=== PATIENT | male | born 1955 | race Caucasian/White ===

== ENCOUNTER 2017-11-27 09:18 | Emergency (ER) | payer OTHER, SELFPAY ==
[2017-11-27 09:35] VITALS: BP 141/75; PULSE 103; RESP 18; TEMP 37.1; O2SAT 96; BMI 40.7
--- NOTE | 2017-11-27 09:46 | HMH.EDUTC ---
[facility] [place] Clinical Impression: Upper respiratory infection Qualifiers: URI type: unspecified URI Qualified Code(s): J06.9 - Acute upper respiratory infection, unspecified Disposition: Home, Self-Care Condition on Discharge: Good Instructions: Sore Throat Additional Instructions: * Monitor Temp. Tylenol and/or Ibuprofen as needed. ER if fever is no less than 101 despite alternating Tylenol and Ibuprofen * Encourage fluids, water, Gatorade, powerade, pedialyte if /toddler/or child * Warm salt water gargles for throat irritation *Warm fluids *Sore throat lozenges *Sleep elevated *humidifier or vaporizer Lots of rest Increase fluids, water, Gatorade, powerade *Your throat swab was sent to lab for culture. Those results area typically sent to your primary care physician. Be sure to follow up in 2-3 days if no improvement so they can review those results and treat if necessary If you dont have primary care I recommend you get one, but in the mean time you will have to return to a walk in clinic Follow up IMMEDIATELY for new or worsening of symptoms OR no noticeable improvement over the next 48-72 hours. 911 immediately for any life threatening symptoms such as chest pain or difficulty breathing Prescriptions: Azithromycin [Z-Fahad 250mg Tab] 250 mg PO UD DOSE PK #6 tab Dextromethorphan Polistirex [Delsym] 10 ml PO Q12H PRN #200 [email or web address] PRN Reason: Cough predniSONE [Prednisone 20mg Tab] 20 mg PO BID #10 tab Time of Disposition: 11:05 Medical Decision Making - Medical Records Medical records reviewed: Yes: I reviewed the patient's medical records. Vital Signs: 11/27/17 09:35 Temperature 98.8 F Temperature Source Oral Pulse Rate [Right Brachial] 103 H Respiratory Rate 18 Blood Pressure [Right Arm] 141/75 Blood Pressure Mean [Right Arm] 97 Blood Pressure Source [Right Arm] Automatic Cuff Blood Pressure Position [Right Arm] Sitting 02 Sat by Pulse Oximetry 96 Oxygen Delivery Method Room Air - Lab Data Lab Results 11/27/17 09:44: Influenza Type A Ag Negative, Influenza Type B Ag Negative, Strep Scn Rapid Clinic Negative Orders (Tests/Meds): ORDERS Category Date Time Status Chest XR 2 view (NOT portable) [XR chest 2V] Stat Exams 11/27/17 09:50 Taken Strep Screen Confirmation Stat Micro 11/27/17 09:44 Received - Radiology Data #1 Image(s): Chest Image Reviewed: Yes I have reviewed radiologist's interpretation - Lopez Inquiry Pt receiving controlled substance: No Lopez was queried for this patient: No [facility] [place]PI - General Stated complaint: sore thoat Mode of Arrival: Ambulatory Source of Information: Patient Limitations: No Limitations Description of Symptoms (Recalled from Triage Doc. 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 strep States that he has not had a fever that he knows of but his cough and drainage has continued to get worse - Related Data Previous Rx's Medication Instructions Recorded Azithromycin [Z-Fahad 250mg Tab] 250 mg PO UD DOSE PK #6 tab 11/27/17 Dextromethorphan Polistirex 10 ml PO Q12H PRN #200 [email or web address] 11/27/17 [Delsym] predniSONE [Prednisone 20mg 20 mg PO BID #10 tab 11/27/17 Tab] Allergies Allergy/AdvReac Type Severity Reaction Status Date / Time No Known Allergies Allergy Verified 11/27/17 09:43 - Worker's Comp Is this a Worker's Comp case?: No [facility] History I have reviewed the patient's past medical history: Yes Medical History: Denies:: Cancer, Diabetes Mellitus Type 1,
[2017-11-27 09:48] LABS: UTC Influenza A Antigen Negative (Negative); UTC Influenza B Antigen Negative (Negative); UTC Strep Screen (Rapid) Negative (Negative)
--- NOTE | 2017-11-27 09:50 | ED_ITS ---
[facility] [place] Clinical Impression: Upper respiratory infection Qualifiers: URI type: unspecified URI Qualified Code(s): J06.9 - Acute upper respiratory infection, unspecified Disposition: Home, Self-Care Condition on Discharge: Good Instructions: Sore Throat Additional Instructions: * Monitor Temp. Tylenol and/or Ibuprofen as needed. ER if fever is no less than 101 despite alternating Tylenol and Ibuprofen * Encourage fluids, water, Gatorade, powerade, pedialyte if /toddler/or child * Warm salt water gargles for throat irritation *Warm fluids *Sore throat lozenges *Sleep elevated *humidifier or vaporizer Lots of rest Increase fluids, water, Gatorade, powerade *Your throat swab was sent to lab for culture. Those results area typically sent to your primary care physician. Be sure to follow up in 2-3 days if no improvement so they can review those results and treat if necessary If you don? t have primary care I recommend you get one, but in the mean time you will have to return to a walk in clinic Follow up IMMEDIATELY for new or worsening of symptoms OR no noticeable improvement over the next 48-72 hours. 911 immediately for any life threatening symptoms such as chest pain or difficulty breathing Prescriptions: Azithromycin [Z-Fahad 250mg Tab] 250 mg PO UD DOSE PK #6 tab Dextromethorphan Polistirex [Delsym] 10 ml PO Q12H PRN #200 [email or web address] PRN Reason: Cough predniSONE [Prednisone 20mg Tab] 20 mg PO BID #10 tab Time of Disposition: 11:05 Medical Decision Making - Medical Records Medical records reviewed: Yes: I reviewed the patient's medical records. Vital Signs: 11/27/17 09:35 Temperature 98.8 F Temperature Source Oral Pulse Rate [Right Brachial] 103 H Respiratory Rate 18 Blood Pressure [Right Arm] 141/75 Blood Pressure Mean [Right Arm] 97 Blood Pressure Source [Right Arm] Automatic Cuff Blood Pressure Position [Right Arm] Sitting 02 Sat by Pulse Oximetry 96 Oxygen Delivery Method Room Air - Lab Data Lab Results 11/27/17 09:44: Influenza Type A Ag Negative, Influenza Type B Ag Negative, Strep Scn Rapid Clinic Negative Orders (Tests/Meds): ORDERS Category Date Time Status Chest XR 2 view (NOT portable) [XR chest 2V] Stat Exams 11/27/17 09:50 Taken Strep Screen Confirmation Stat Micro 11/27/17 09:44 Received - Radiology Data #1 Image(s): Chest Image Reviewed: Yes I have reviewed radiologist's interpretation - Lopez Inquiry Pt receiving controlled substance: No Lopez was queried for this patient: No [facility] [place] - General Stated complaint: sore thoat Mode of Arrival: Ambulatory Source of Information: Patient Limitations: No Limitations Description of Symptoms (Recalled from Triage Doc. 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
--- NOTE | 2017-11-27 09:50 | XR_ITS ---
XR chest 2V HISTORY: Cough and congestion ITS.REASON: congestion ORDERING PHYSICIAN: Cordelia Bland PATIENT AGE: 62 years COMPARISON: 03/16/2017 FINDINGS: The cardiomediastinal silhouette and pulmonary vascularity are within normal limits. The lungs are clear without infiltrates, suspicious nodules, or pleural effusions. No acute bony abnormalities. IMPRESSION: Negative chest, no acute finding
== END 2017-11-27 11:23 | disposition home or self-care (01) ==
PROVIDERS: Emergency Provider Nurse Practitioner
DX: J06.9 Acute upper respiratory infection, unspecified (principal)
CPT/HCPCS: 71046; 87804; 87880; 99203; 99281

== ENCOUNTER → 2018-09-21 12:52 | Outpatient (CLI) | payer OTHER, SELFPAY ==
[2018-09-21 13:58] LABS: Alanine Aminotransferase 27 U/L (12-78); Albumin Level 3.7 gm/dL (3.4-5.0); Alkaline Phosphatase 111 U/L (46-116); Anion Gap 14.8 mEq/L (5-15); Aspartate Amino Transferase 12 U/L (15-37); Bilirubin,Total 1.3 mg/dL (0.2-1.0); Blood Urea Nitrogen 17 mg/dL (7-18); Calcium 8.7 mg/dL (8.5-10.1); Carbon Dioxide 26 mmol/L (21.0-32.0); Chloride 104 mmol/L (98-107); Chol/HDL Ratio 3.6 (1-3.5); Cholesterol 129 mg/dL (140-200); Estimated Glomerular Filt Rate 86 ml/min (>60); Free Thyroxine Index 2.6 ug/dL (5.93-13.13); GFR (African American) 104 ML/MIN (>60); Globulin 3.6 gm/dl (1.3-3.2); Glucose 121 mg/dL (74-106); HDL Cholesterol 36 mg/dL (27-67); LDL Cholesterol 71 mg/dL (0-130); Potassium 3.8 mmoL/L (3.5-5.1); Sodium 141 mmol/L (136-145); Thyroid Stimulating Hormone 2.23 uIU/ml (0.358-3.740); Total Protein,Serum 7.3 gm/dL (6.4-8.2); Triglycerides 109 mg/dL (30-200); Triiodothryronine (T3) Uptake 33 % (31-39); VLDL Cholesterol 22 mg/dL (0-40)
[2018-09-21 14:37] LABS: Basophils # 0.1 K/mm3 (0-0.2); Basophils % 0.6 % (0.1-2.0); Eosinophils # 0.5 K/mm3 (0.0-0.4); Eosinophils % 6.1 % (0.1-12.0); Hematocrit 44.8 % (42.0-52.0); Hemoglobin 14.3 g/dL (14.1-18.0); Lymphocytes # 1.4 K/mm3 (0.7-4.5); Lymphocytes % 18.9 % (10-50); Mean Corpuscular HGB Conc 31.9 g/dL (31.8-35.4); Mean Corpuscular Hemoglobin 28.9 pg (27.0-31.2); Mean Corpuscular Volume 90.6 fl (80-94); Mean Platelet Volume 9.2 fl (7.4-10.4); Monocytes # 0.5 K/mm3 (0.1-1.0); Monocytes % 6.4 % (1.7-9.3); Platelet Count 294 K/mm3 (142-424); Red Blood Count 4.95 M/mm3 (4.60-6.20); Red Cell Distribution Width 13.9 % (11.5-17.5); White Blood Count 7.4 K/mm3 (4.8-10.8)
[2018-09-21 16:04] LABS: Hemoglobin A1C 5.8 % (0.0-7.0)
[2018-09-22 19:51] LABS: Prostate Specific Ag 0.5 ng/mL (0.0-4.0); Vitamin D 25 Hydroxy 26.7 ng/mL (30.0-100.0)
== END ==
PROVIDERS: Visit Provider Nurse Practitioner Family
DX: R53.83 Other fatigue (principal)
CPT/HCPCS: 80053; 80061; 82652; 83036; 84153; 84154; 84436; 84443; 84479; 85025

== ENCOUNTER → 2020-03-27 15:36 | Outpatient (CLI) | payer BC, SELFPAY ==
[2020-03-27 15:48] LABS: Basophils # 0.1 K/mm3 (0-0.2); Basophils % 0.5 % (0.1-2.0); Eosinophils # 0.4 K/mm3 (0.0-0.4); Eosinophils % 3.7 % (0.1-12.0); Hematocrit 43.3 % (42.0-52.0); Hemoglobin 14.4 g/dL (14.1-18.0); Lymphocytes # 1.6 K/mm3 (0.7-4.5); Lymphocytes % 16.6 % (10-50); Mean Corpuscular HGB Conc 33.3 g/dL (31.8-35.4); Mean Corpuscular Hemoglobin 29.4 pg (27.0-31.2); Mean Corpuscular Volume 88.3 fl (80-94); Mean Platelet Volume 9.7 fl (7.4-10.4); Monocytes # 0.5 K/mm3 (0.1-1.0); Monocytes % 5.3 % (1.7-9.3); Neutrophils # 6.9 K/mm3 (1.8-7.8); Neutrophils % 73.9 % (37.0-80.0); Platelet Count 351 K/mm3 (142-424); Red Cell Distribution Width 13.8 % (11.5-17.5); White Blood Count 9.4 K/mm3 (4.8-10.8)
[2020-03-27 16:04] LABS: Alanine Aminotransferase 23 U/L (12-78); Albumin Level 4.2 g/dl (3.5-5.0); Albumin/Globulin Ratio 1.3 (1.1-1.8); Alkaline Phosphatase 111 U/L (38-126); Aspartate Amino Transferase 22 U/L (17-59); Bilirubin,Total 0.8 mg/dl (0.2-1.3); Blood Urea Nitrogen 13 mg/dl (9-20); Calcium 9.3 mg/dl (8.4-10.2); Carbon Dioxide 27 mmol/L (22.0-30.0); Chloride 106 mmol/L (98-107); Chol/HDL Ratio 4.2 (1-3.5); Cholesterol 133 mg/dl (140-200); Estimated Glomerular Filt Rate 98 ml/min (>60); GFR (African American) 118 ML/MIN (>60); Globulin 3.3 g/dL (1.3-3.2); Glucose 125 mg/dl (74-100); HDL Cholesterol 32 mg/dl (40-60); Sodium 137 mmol/L (136-145); Total Protein,Serum 7.5 g/dl (6.3-8.2); Triglycerides 133 mg/dl (30-150); VLDL Cholesterol 27 mg/dL (0-40)
[2020-03-27 16:17] LABS: Direct LDL Cholesterol 73.73 mg/dL (100-129)
[2020-03-27 16:22] LABS: T4 (Thyroxine) 7.9 ug/dl (5.53-11.0)
[2020-03-27 16:35] LABS: Thyroid Stimulating Hormone 2.59 uIU/mL (0.465-4.68)
[2020-03-29 07:27] LABS: Vitamin D 25 Hydroxy 26.4 ng/mL (30.0-100.0)
[2020-03-29 20:31] LABS: PSA, Free 0.07 ng/mL; Prostate Specific Ag 0.4 ng/mL (0.0-4.0)
== END ==
PROVIDERS: Visit Provider Nurse Practitioner Family
DX: R60.0 Localized edema (principal); E55.9 Vitamin D deficiency, unspecified; I10 Essential (primary) hypertension; Z79.899 Other long term (current) drug therapy; Z01.89 Encounter for other specified special examinations
CPT/HCPCS: 80053; 80061; 82652; 84153; 84154; 84436; 84443; 85025

== ENCOUNTER → 2020-04-11 08:28 | Outpatient (CLI) | payer BC, SELFPAY ==
--- NOTE | 2020-04-11 08:33 | CA_ITS ---
APPROVED REPORT Bilateral Lower Extremity Venous Study for DVT. Pick Remover: SHABANA Indications Lower Extremity Edema: Bilateral Lower Extremity Swelling: Bilateral Edema BLE X several months. Denies trauma or pain Risk Factors Obesity Vein Imaging CFV (R): compressive, spontaneous, phasic, augmentation FEM (R): compressive, spontaneous, phasic, augmentation POP (R): compressive, spontaneous, phasic, augmentation PTV (R): Compressible GSV (R): compressive, spontaneous, phasic, augmentation SSV (R): Compressible Peroneals (R):Compressible GAS (R): Compressible CFV (L): compressive, spontaneous, phasic, augmentation FEM (L): compressive, spontaneous, phasic, augmentation POP (L): compressive, spontaneous, phasic, augmentation PTV (L): Compressible GSV (L): compressive, spontaneous, phasic, augmentation SSV (L): Compressible Peroneals (L):Compressible GAS (L): Compressible Findings No evidence of DVT or superficial thrombophlebitis in the veins scanned of the right lower extremity. No evidence of DVT or superficial thrombophlebitis in the veins scanned of the left lower extremity. Conclusion No evidence of DVT or superficial thrombophlebitis in the veins scanned of the right lower extremity. No evidence of DVT or superficial thrombophlebitis in the veins scanned of the left lower extremity. Electronically signed by : Mayito Harper MD 04/11/2020 18:35:10
== END ==
PROVIDERS: PCP Nurse Practitioner Family; Visit Provider Nurse Practitioner Family
DX: R60.0 Localized edema (principal)
CPT/HCPCS: 93970

== ENCOUNTER 2021-12-03 09:28 | Emergency (ER) | payer BC, SELFPAY ==
[2021-12-03 10:16] VITALS: BP 145/78; PULSE 92; RESP 16; TEMP 36.8; O2SAT 95; BMI 43.5
--- NOTE | 2021-12-03 10:32 | HMH.EDUTC ---
[facility] [place] Clinical Impression: Bronchitis, Viral syndrome, Exposure to COVID-19 virus Disposition: Home, Self-Care Condition on Discharge: Good Instructions: DI for Acute Bronchitis, Acute Bronchitis, Preventing the Spread of Coronavirus Discharge Instructions, DI for COVID-19 (Suspected or Confirmed ) Additional Instructions: Drink plenty of fluids. Take tylenol or ibuprofen for pain or fever. Take the medications as directed. Follow up with your regular doctor. GO TO THE ER FOR ANY WORSENING SYMPTOMS Quarantine until you know the results of your covid-19 test. Notify your school or workplace of your results and follow their instructions regarding return to work/school. Prescriptions: Benzonatate [Benzonatate 100mg cap] 100 mg PO TIDP PRN #30 cap PRN Reason: Cough Transmission Status: Pending to [id number] Azithromycin [Z-Fahad 250mg Tab*] 250 mg PO UD DOSE PK #6 tab Transmission Status: Pending to [id number] Referrals: Wes Love APRN [Primary Care Provider] - Forms: Work/School Release Time of Disposition: 10:51 Medical Decision Making - Medical Records Medical records reviewed: No: I reviewed the patient's medical records. - Lopez Inquiry Pt receiving controlled substance: No Vital Signs: 12/03/21 10:16 Temperature 98.2 F Temperature Source Oral Pulse Rate [Left] 92 H Respiratory Rate 16 Blood Pressure [Right Arm] 145/78 H Blood Pressure Mean [Right Arm] 100 02 Sat by Pulse Oximetry 95 - Lab Data Lab results reviewed: Yes: I reviewed the patient's lab results. Orders (Tests/Meds): ORDERS Category Date Time Status Covid-19 Nasal PCR ([facility]) Routine Lab 12/03/21 10:14 Received Rapid Strep Scrn Group A [Strep Scrn Group A (Rapid)] Lab 12/03/21 10:14 Received Stat [facility] [place] - General Stated complaint: sore throa, cough, congestion Time Seen by Provider: 12/03/21 10:32 Mode of Arrival: Ambulatory Source of Information: Patient Limitations: No Limitations Description of Symptoms (Recalled from Triage Doc. by RN): pt c/o a sore throat and chest pain with coughing. HEENT Symptoms (Recalled from RN notes): Yes Resp Symptoms (Recalled from RN notes): Yes Skin Symptoms (Recalled from RN notes): No MS Symptoms (Recalled from RN notes): No Functional Status (Recalled from RN notes): wnl - History of Present Illness Provider Complaint: He states that he has felt bad for the past 1 day. He has a worsening cough and chest tightness. He denies any shortness of breath. He denies any fever or chills. He has been fully vaccinated against covid-19. He has had a flu shot this season also. - Related Data Previous Rx's Medication Instructions Recorded furosemide 20 mg tablet 20 mg PO DAILY 4 Days #4 tab 03/27/20 mupirocin 2 % topical ointment 1 applic TOPICAL BID #15 g 03/27/20 cholecalciferol (vitamin D3) 50 50 mcg PO DAILY #30 cap 04/04/20 mcg (2,000 unit) capsule Azithromycin [Z-Fahad 250mg Tab*] 250 mg PO UD DOSE PK #6 tab 12/03/21 Benzonatate [Benzonatate 100mg 100 mg PO TIDP PRN #30 cap 12/03/21 cap] Allergies Allergy/AdvReac Type Severity Reaction Status Date / Time No Known Allergies Allergy Verified 03/27/20 10:32 - Worker's Comp Is this a Worker's Comp case?: No [facility] History - Hepatitis A Screen Drug use history?: No High risk sexual behaviors?: No History of sexually transmitted infection?: No Currently employed?: No Childcare worker?: No Do you have indoor plumbing?: Yes Do you have electricity?: Yes Attestation statement:: This patient has been screened for Hepatitis A risk factors. I have reviewed the patient's past medical history: Yes Medical History: Reports:: Hypertension Denies:: Cancer, Diabetes Mellitus Type 1, Diabetes Mellitus Type 2, MRSA Other Medical History: Denies: Arthritis Laterality Cases: Bilateral: Other Other Surgeries: Yes: Appendectomy, Cholecystectomy, Other
[2021-12-03 10:57] VITALS: BP 145/78; PULSE 92; RESP 16; TEMP 36.8
[2021-12-03 11:40] LABS: Strep Scrn Group A (Rapid) Negative (Negative)
== END 2021-12-03 10:58 | disposition home or self-care (01) ==
PROVIDERS: Emergency Provider Nurse Practitioner Family; PCP Nurse Practitioner Family
DX: U07.1 COVID-19 (principal); B34.9 Viral infection, unspecified
CPT/HCPCS: 87430; 99203; C9803; G0463; U0003; U0005

== ENCOUNTER 2022-10-14 08:13 | Emergency (ER) | payer MEDICARE, BC, SELFPAY ==
--- NOTE | 2022-10-14 08:38 | EXP.UTC ---
Discharge Plan Disposition Patient Disposition: Home, Self-Care Condition: Good Prescriptions Prescriptions: New amoxicillin [amoxicillin] 500 mg tablet 500 mg PO TID 10 Days Qty: 30 0RF benzonatate [benzonatate] 100 mg capsule 100 mg PO TIDP PRN (Reason: Cough) Qty: 30 0RF methylprednisolone 4 mg Tablets,Dose Pack 4 mg PO DIRECTED Qty: 21 0RF No Action furosemide [Lasix] 20 mg tablet 20 mg PO DAILY 4 Days Qty: 4 0RF mupirocin 2 % ointment 1 applic TOPICAL BID Qty: 15 0RF cholecalciferol (vitamin D3) 50 mcg (2,000 unit) capsule 50 mcg PO DAILY Qty: 30 2RF azithromycin 250 MG tablet 250 mg PO UD DOSE PK Qty: 6 0RF Rx Instructions: Take two (2) tablets today, then one (1) tablet days #2 thru #5 benzonatate 100 MG capsule 100 mg PO TIDP PRN (Reason: Cough) Qty: 30 0RF Referrals Follow up/Referrals: Provider,Referral, MD [Primary Care Provider] - See instructions Activity Restrictions/Add. Instructions Additional Instructions/Restrictions: Drink plenty of fluids. Take tylenol or ibuprofen for pain or fever. Take the medications as directed. Follow up with your regular doctor. GO TO THE ER FOR ANY WORSENING SYMPTOMS Clinical Impressions Clinical Impression: Bronchitis, Upper respiratory infection Stand Alone Forms Stand Alone Forms: Work/School Release Instructions Patient Instructions: DI for Sinusitis, DI for Acute Bronchitis Discharge ED Provider: Cory Middleton [facility] General Stated complaint: Drainage, sneezing, cough Time Seen by Provider: 10/14/22 08:38 History of Present Illness Provider Complaint: He has had sinus congestion, cough, ear pain and sore throat for the past 5 days. Related Data Previous Rx's Medication Instructions Recorded furosemide 20 mg tablet (Lasix) 20 mg PO DAILY 4 days #4 tabs 03/27/20 mupirocin 2 % topical ointment 1 applic topical BID #15 grams 03/27/20 cholecalciferol (vitamin D3) 50 50 mcg PO DAILY #30 caps 04/04/20 mcg (2,000 unit) capsule azithromycin 250 mg tablet 250 mg PO UD DOSE PK #6 tabs 12/03/21 benzonatate 100 mg capsule 100 mg PO TIDP PRN Cough #30 caps 12/03/21 amoxicillin 500 mg tablet 500 mg PO TID 10 days #30 tabs 10/14/22 benzonatate 100 mg capsule 100 mg PO TIDP PRN Cough #30 caps 10/14/22 methylprednisolone 4 mg tablets in 4 mg PO DIRECTED #21 tabs 10/14/22 a dose pack Allergies Allergy/AdvReac Type Severity Reaction Status Date / Time No Known Allergies Allergy Verified 03/27/20 10:32 [facility] Disclaimer: The information contained in this section may have been updated after the patient was seen, as this information can be updated by other users. Social History Smoking Status: Never smoker alcohol intake: never current occupational status: other Travel in the last 8 weeks: None household members: spouse ROS Obtained: Yes All systems reviewed & no additional complaints except as documented Constitutional Constitutional: Reports chills and Reports fever(s) Eyes Eyes: Denies eye discharge ENT Ears, Nose, Mouth, and Throat: Reports as per HPI Cardiovascular Cardiovascular: Denies chest pain Respiratory Respiratory: Denies chest congestion and Reports cough Gastrointestinal Gastrointestingal: Reports nausea; Denies abdominal pain, constipation, cramping, diarrhea or vomiting Musculoskeletal Musculoskeletal: Denies arthralgias Integumentary/Breasts Skin/Breast: Denies rash Neurologic Neurologic: Denies paresthesias Physical Exam General General appearance: alert and in no apparent distress Head Head exam: atraumatic, normocephalic and normal inspection Eye Eye exam: Present normal appearance, PERRL and EOMI ENT ENT exam: Present normal exam, normal oropharynx, mucous membranes moist, TM's normal bilaterally and normal external ear exam Neck Neck exam: Present normal inspection, full ROM and
[2022-10-14 08:53] VITALS: BP 152/69; PULSE 91; RESP 16; TEMP 37; O2SAT 96; BMI 44.0
[2022-10-14 09:06] LABS: UTC Strep Screen (Rapid) Negative (Negative)
[2022-10-14 09:24] VITALS: BP 153/69; PULSE 91; RESP 16; TEMP 37
== END 2022-10-14 09:47 | disposition home or self-care (01) ==
PROVIDERS: Emergency Provider Nurse Practitioner Family
DX: J02.9 Acute pharyngitis, unspecified (principal); H92.09 Otalgia, unspecified ear; R50.9 Fever, unspecified; R09.81 Nasal congestion; R05.9 Cough, unspecified; Z79.52 Long term (current) use of systemic steroids; Z20.822 Contact with and (suspected) exposure to COVID-19; Z79.899 Other long term (current) drug therapy
CPT/HCPCS: 87880; 99213; C9803; G0463; U0003; U0005

== ENCOUNTER → 2023-05-31 14:12 | Outpatient (CLI) | payer BC, SELFPAY ==
--- NOTE | 2023-05-31 14:16 | CA_ITS ---
APPROVED REPORT EXAM: Comprehensive 2D, Doppler, and color-flow Echocardiogram Au Pair: Trish Ross CRT Ht: 5 ft 6 in Wt: 270lbs BSA: 2.27 BP: 135/65 mmHg Indications: Peripheral Edema 2D Dimensions LVOT 1.98 cm (M/F) 1.5-2.5 LA Volume 48.20 mL LA Volume Index 21.23 mL/m2 (M/F) 16-34 M-Mode Dimensions RVDd 2.72 cm (0.9-2.6) LA Diam 4.35 cm (1.9-4.0) LVDd 5.82 cm (3.5-5.7) Ao Diam 3.92 cm (2.0-3.7) LVDs 3.70 cm (3.5-5.7) IVSd 1.02 cm (0.6-1.1) PWd 0.42 cm (0.6-1.1) EF (Teich) 65.40% FS 36.40% EDV (Teich) 167.90 mL TAPSE 1.96 (<1.7) ESV (Teich) 58.10 mL LV Diastology E Decel Time 150.00 (160-240 msec) E/A Ratio 1.05 MED E' 6.80 (< 7 cm/sec) MED A' 8.90 cm/s E'/MED E' Ratio 11.04 (>14) LAT E' 11.00 (<10 cm/sec) LAT A' 10.60 cm/s E/LAT E' Ratio 6.83 (>14) Aortic Valve AO Peak GR. 7.50 mmHg Mitral Valve MV A Velocity 71.00 (40-130 cm/s) E/A Ratio 1.05 MV Decel. Time 150.00 (160-240 ms) Pulmonary Valve PV Peak Velocity 169.00 (50-150 cm/s) Tricuspid Valve TR P. Velocity 270.00 cm/s RAP Estimate 10.00 mmHg RVSP 39.10 mmHg Left Ventricle The left ventricle is normal size. The left ventricular systolic function is normal. The left ventricular ejection fraction is within the normal range. There is normal left ventricular wall thickness. There is normal LV segmental wall motion. The left ventricular diastolic function is normal. LVEF is 55%. Right Ventricle The right ventricle is mildly dilated. The right ventricular systolic function is normal. Atria The left atrium size is normal. The right atrium size is normal. There is no Doppler evidence of interatrial shunt. Aortic Valve The aortic valve opens well. The aortic valve is mildly thickened. There is focal nodular thickening of the non-coronary cusp. There is no aortic valvular stenosis. Trace aortic regurgitation. Mitral Valve The mitral valve is normal in structure. Trace mitral regurgitation. Tricuspid Valve The tricuspid valve leaflets are thin and pliable. Trace tricuspid regurgitation. The TR jet is insufficient to estimate RVSP. Pulmonic Valve The pulmonary valve is normal in structure. Trace pulmonic regurgitation. Great Vessels The aortic root is normal in size. The visualized proximal segment of the ascending aorta is normal in size. IVC is normal in size and collapses >50% with inspiration. Pericardium There is no pericardial effusion. Conclusion Normal biventricular systolic function Mild RV dilation Mildly thickened AV, focal nodular thickening on the non-coronary cusp of the AV Electronically signed by : Elly Ortiz, 05/31/2023 21:55:00
== END ==
PROVIDERS: Visit Provider Family Medicine
DX: R60.0 Localized edema (principal)
CPT/HCPCS: 93306

== ENCOUNTER 2023-09-09 11:55 | Emergency (ER) | payer BC, SELFPAY ==
[2023-09-09 11:55] VITALS: BP 140/73; PULSE 79; RESP 18; TEMP 36.6; O2SAT 96; BMI 43.5
--- NOTE | 2023-09-09 12:25 | EXP.UTC ---
Discharge Plan Disposition Patient Disposition: Home, Self-Care Condition: Good Prescriptions Prescriptions: New azithromycin [Zithromax] 250 mg tablet 250 mg PO UD DOSE PK Qty: 6 0RF Rx Instructions: Take two (2) tablets today, then one (1) tablet days #2 thru #5 benzonatate [benzonatate] 100 mg capsule 100 mg PO TIDP PRN (Reason: Cough) Qty: 30 0RF methylprednisolone 4 mg Tablets,Dose Pack 4 mg PO DIRECTED Qty: 21 0RF No Action furosemide [Lasix] 20 mg tablet 20 mg PO DAILY 4 Days Qty: 4 0RF cholecalciferol (vitamin D3) 50 mcg (2,000 unit) capsule 50 mcg PO DAILY Qty: 30 2RF lisinopril 5 mg tablet 5 mg PO DAILY Patient Comments: TAKE 1 TABLET BY MOUTH ONCE DAILY Referrals Follow up/Referrals: Johnson Santacruz MD [Primary Care Provider] - See instructions Activity Restrictions/Add. Instructions Additional Instructions/Restrictions: Drink plenty of fluids. Take tylenol or ibuprofen for pain or fever. Take the medications as directed. Follow up with your regular doctor. GO TO THE ER FOR ANY WORSENING SYMPTOMS Clinical Impressions Clinical Impression: Bronchitis Stand Alone Forms Stand Alone Forms: Work/School Release Instructions Patient Instructions: DI for Acute Bronchitis, Acute Bronchitis Discharge ED Provider: Cory Middleton [facility] General Stated complaint: SORE THROAT Time Seen by Provider: 09/09/23 12:25 History of Present Illness Provider Complaint: He states that he has had a cough and chest congestion for the past 3 days. He denies any fever/chills/body aches. He states that he took a home covid-19 test last night that was negative. He refuses any viral testing here. Related Data Home Medications Medication Instructions Recorded Confirmed lisinopril 5 mg tablet 5 mg PO DAILY htn 09/09/23 09/09/23 Previous Rx's Medication Instructions Recorded furosemide 20 mg tablet (Lasix) 20 mg PO DAILY 4 days #4 tabs 03/27/20 cholecalciferol (vitamin D3) 50 50 mcg PO DAILY #30 caps 04/04/20 mcg (2,000 unit) capsule azithromycin 250 mg tablet 250 mg PO UD DOSE PK #6 tabs 09/09/23 (Zithromax) benzonatate 100 mg capsule 100 mg PO TIDP PRN Cough #30 caps 09/09/23 methylprednisolone 4 mg tablets in 4 mg PO DIRECTED #21 tabs 09/09/23 a dose pack Allergies Allergy/AdvReac Type Severity Reaction Status Date / Time No Known Allergies Allergy Verified 09/09/23 12:38 [facility] Disclaimer: The information contained in this section may have been updated after the patient was seen, as this information can be updated by other users. Social History Smoking Status: Never smoker alcohol intake: never current occupational status: other Travel in the last 8 weeks: None household members: spouse ROS Obtained: Yes All systems reviewed & no additional complaints except as documented Constitutional Constitutional: Reports as per HPI, Denies chills and Denies fever(s) Eyes Eyes: Denies eye discharge ENT Ears, Nose, Mouth, and Throat: Reports as per HPI Cardiovascular Cardiovascular: Denies chest pain Respiratory Respiratory: Denies chest congestion and Reports cough Gastrointestinal Gastrointestingal: Reports nausea; Denies abdominal pain, constipation, cramping, diarrhea or vomiting Musculoskeletal Musculoskeletal: Denies arthralgias Integumentary/Breasts Skin/Breast: Denies rash Neurologic Neurologic: Denies paresthesias Physical Exam General General appearance: alert and in no apparent distress Head Head exam: atraumatic, normocephalic and normal inspection Eye Eye exam: Present normal appearance, PERRL and EOMI ENT ENT exam: Present normal exam, normal oropharynx, mucous membranes moist, TM's normal bilaterally and normal external ear exam Neck Neck exam: Present normal inspection, full ROM and trachea midline; Absent meningismus or lymphadenopathy Ch
[2023-09-09 12:41] LABS: UTC Strep Screen (Rapid) Negative (Negative)
[2023-09-09 13:11] VITALS: BP 140/73; PULSE 79; RESP 18; TEMP 36.6; O2SAT 96
== END 2023-09-09 13:11 | disposition home or self-care (01) ==
PROVIDERS: Emergency Provider Nurse Practitioner Family; PCP Family Medicine
DX: J20.9 Acute bronchitis, unspecified (principal); R07.0 Pain in throat
CPT/HCPCS: 87880; 99212; 99214; G0463

== ENCOUNTER 2023-09-21 15:55 | Emergency (ER) | payer BC, SELFPAY ==
[2023-09-21 16:31] VITALS: BP 136/75; PULSE 89; RESP 20; TEMP 36.9; O2SAT 98; BMI 43.5
--- NOTE | 2023-09-21 16:53 | EXP.UTC ---
Discharge Plan Disposition Patient Disposition: Home, Self-Care Condition: Good Prescriptions Prescriptions: New promethazine-DM 6.25-15 mg/5 mL syrup 5 ml PO Q6H PRN (Reason: cough) Qty: 118 0RF No Action furosemide [Lasix] 20 mg tablet 20 mg PO DAILY 4 Days Qty: 4 0RF cholecalciferol (vitamin D3) 50 mcg (2,000 unit) capsule 50 mcg PO DAILY Qty: 30 2RF lisinopril 5 mg tablet 5 mg PO DAILY Patient Comments: TAKE 1 TABLET BY MOUTH ONCE DAILY azithromycin [Zithromax] 250 mg tablet 250 mg PO UD DOSE PK Qty: 6 0RF Rx Instructions: Take two (2) tablets today, then one (1) tablet days #2 thru #5 benzonatate [benzonatate] 100 mg capsule 100 mg PO TIDP PRN (Reason: Cough) Qty: 30 0RF methylprednisolone 4 mg Tablets,Dose Pack 4 mg PO DIRECTED Qty: 21 0RF Referrals Follow up/Referrals: Johnson Santacruz MD [Primary Care Provider] - See instructions Activity Restrictions/Add. Instructions Additional Instructions/Restrictions: Make sure to drink plenty of fluids Take cough mediacation as prescribed Follow up with your Family Doctor if no improvment or any worsening of symptoms Return if needed Clinical Impressions Clinical Impression: Cough Qualifiers: Cough type: unspecified Qualified Code(s): R05.9 - Cough, unspecified Stand Alone Forms Stand Alone Forms: Work/School Release Instructions Patient Instructions: Cough Discharge ED Provider: Cordelia Bland [facility] General Stated complaint: SOA, painful breathing Source of Information: Patient Limitations: No Limitations Time Seen by Provider: 09/21/23 16:54 Description of Symptoms (Recalled from Triage Doc. by RN): PT STATES HE HAS DEVELOPED A COUGH ALONG WITH BEING SHORT OF BREATH THAT STARTED THIS AFTERNOON HEENT Symptoms (Recalled from RN notes): No Resp Symptoms (Recalled from RN notes): Yes Skin Symptoms (Recalled from RN notes): No MS Symptoms (Recalled from RN notes): No Functional Status (Recalled from RN notes): WNL History of Present Illness Provider Complaint: states that he was treated a week or so ago for bronchitis States that he finished the medication and was doing better but today he started again with the cough and feeling like he was getting congested again and coughing so hard at times it makes him feel short of breath and his lungs burn worried he may have pneumonia States that he has had some chills and daughter had COVID last week Related Data Home Medications Medication Instructions Recorded Confirmed lisinopril 5 mg tablet 5 mg PO DAILY htn 09/09/23 09/09/23 Previous Rx's Medication Instructions Recorded furosemide 20 mg tablet (Lasix) 20 mg PO DAILY 4 days #4 tabs 03/27/20 cholecalciferol (vitamin D3) 50 50 mcg PO DAILY #30 caps 04/04/20 mcg (2,000 unit) capsule azithromycin 250 mg tablet 250 mg PO UD DOSE PK #6 tabs 09/09/23 (Zithromax) benzonatate 100 mg capsule 100 mg PO TIDP PRN Cough #30 caps 09/09/23 methylprednisolone 4 mg tablets in 4 mg PO DIRECTED #21 tabs 09/09/23 a dose pack promethazine-DM 6.25 mg-15 mg/5 mL 5 ml PO Q6H PRN cough #118 mL 09/21/23 oral syrup Allergies Allergy/AdvReac Type Severity Reaction Status Date / Time No Known Allergies Allergy Verified 09/09/23 12:38 Worker's Comp Is this a Worker's Comp case?: No [facility] Disclaimer: The information contained in this section may have been updated after the patient was seen, as this information can be updated by other users. Social History Smoking Status: Never smoker alcohol intake: never current occupational status: other Travel in the last 8 weeks: None household members: spouse ROS Obtained: Yes All systems reviewed & no additional complaints except as documented and Yes Systems reviewed as appropriate & no additional complaints except as documented Constitutional Constitutional: Reports system review
--- NOTE | 2023-09-21 16:58 | XR_ITS ---
PROCEDURE INFORMATION: Exam: XR Chest Exam date and time: 09/21/2023 4:58 PM Age: 68 years old Clinical indication: Cough; Additional info: Cough/congestion TECHNIQUE: Imaging protocol: Radiologic exam of the chest. Views: 2 views. COMPARISON: CR CXR2V XR chest 2V 11/27/2017 10:22 AM FINDINGS: Lungs: Unremarkable. No consolidation. Pleural spaces: Unremarkable. No pleural effusion. No pneumothorax. Heart/Mediastinum: Unremarkable. No cardiomegaly. Bones/joints: Unremarkable. IMPRESSION: No acute findings.
[2023-09-21 18:06] VITALS: BP 136/75; PULSE 89; RESP 20; TEMP 36.9; O2SAT 98
== END 2023-09-21 18:17 | disposition home or self-care (01) ==
PROVIDERS: Emergency Provider Nurse Practitioner; PCP Family Medicine
DX: U07.1 COVID-19 (principal); R07.1 Chest pain on breathing; R06.02 Shortness of breath; R05.9 Cough, unspecified
CPT/HCPCS: 71046; 87635; 99212; 99214; G0463

== ENCOUNTER 2023-12-23 07:29 | Outpatient (CLI) | payer BC, SELFPAY ==
--- NOTE | 2023-12-23 | CA_ITS ---
APPROVED REPORT Exam: Pharmacologic Technologist: Martina Contreras, Ht: 5 ft 8 in Wt: 277 lbs BSA: 2.35 m2 HR: 81 bpm BP: 150/88 mmHg Rhythm: Normal sinus rhythm Medical History Medications: Furosemide,,,,, Stress Test Details Test: LEXISCAN Reason for pharmacologic stress test: physical limitation. HR Resting HR: 81 bpm Max Heart Rate (APMHR): 154 bpm Max HR Achieved: 105 bpm Target HR (85% APMHR): 131 bpm % of APMHR: 68 Recovery HR: 86 bpm BP Resting BP: 150.0/88.0 mmHg Max BP: 150.0/88.0 mmHg Recovery BP: 132.0/62.0 mmHg ECG Resting ECG: NSR, first-degree AV block, leftward axis, low voltage QRS, cannot R/O old septal WA Stress ECG: No significant ST changes Arrhythmia: Occasional PACs, PVCs Clinical Exercise duration: 04:01 min Highest Stage Achieved: Stress ECG Conclusion Symptoms: SOA, mild head discomfort. Arrhythmias/Ectopy: Occasional PACs, PVCs ST-T Changes: No significant ST changes. Conclusion: Unremarkable Lexiscan stress. Myoview images reported separately. Test Summary REST . . . . . . . Resting REST 04:15 . . 81 . 150/ 88 . . Stage 1 01:00 . . 99 . . . . Stage 2 01:00 . . 96 . . . . Stage 3 01:00 . . 89 . 134/ 61 . . Stage 4 01:00 . . 97 . 135/ 62 . . Stage 4 01:01 . . 97 . 135/ 62 . Stop exercise at 04:01 RECOVERY 01:00 . . 88 . 133/ 58 . . RECOVERY 02:00 . . 84 . 133/ 58 . . RECOVERY 02:39 . . 85 . 132/ 62 . . Electronically signed by : Elly Ortiz MD 12/26/2023 02:15:32
--- NOTE | 2023-12-23 07:35 | NM_ITS ---
APPROVED REPORT Exam: Nuclear Stress Test Indication: LEG SWELLING Patient Location: Outpatient Stress Tech: Martina ELI Tech:FRANCISCO Vanegas RT(R)(N) Ht: 5 ft 6 in Wt: 277 lbs HR: 81 bpm BP: 150/88 mmHg BSA: 2.30 m2 Rhythm: NSR TID: 1.20 BMI: 44.7 Procedure: Patient received 0.4 mg of intravenous Lexiscan, resting heart rate 81 bpm, resting blood pressure 150/88 mmHg, with Lexiscan maximum heart rate achieved was 105 bpm which is 85 % of the maximum predicted heart rate and blood pressure was 150/88 mmHg. With Lexiscan, patient denied any complaint of chest pain. Cardiac Stress and Resting SPECT Images: Cardiac Stress and Resting SPECT images were obtained using technetium 99m Myoview 32.4 mCi stress and 10.29 mCi at rest. Resting and stress imaging and supine positions demonstrate a large sized, moderate, fixed perfusion defect in the inferior and inferoapical LV orellana. This is no longer visualized with prone stress imaging. Findings are suggestive of diaphragmatic attenuation. There is borderline increase in transient ischemic dilatation ratio (TID 1.20), suggestive of possible multivessel disease or balanced ischemia. Gated imaging demonstrates low-normal global and regional LV systolic function. LVEF is calculated at 52%. Conclusion: Diaphragmatic attenuation is present. No focal fixed or reversible perfusion defects. Borderline increase in transient ischemic dilatation ratio (TID 1.20), suggestive of possible multivessel disease or balanced ischemia. Gated imaging demonstrates low-normal global and regional LV systolic function. LVEF is calculated at 52%. Electronically signed by : Elly Ortiz MD 12/26/2023 02:20:05
[2023-12-23] MEDS: ISOTOPE MYOVIEW (PER STUDY) 1 DOSE IV (10:11)
[2023-12-23] MEDS: SODIUM CHLORIDE 0.9% 10ML SYR (RAD ONLY) 10 ML IV ×2 (10:11)
[2023-12-23] MEDS: REGADENOSON 0.4MG/5ML SYRINGE 0.400000000000000022 MG IV (10:11)
== END 2023-12-23 23:59 ==
LOC: RAD 07:29
PROVIDERS: PCP Family Medicine; Visit Provider Family Medicine
DX: R07.89 Other chest pain (principal); I27.20 Pulmonary hypertension, unspecified
CPT/HCPCS: 78452; 93017; 93018; A9502; J2785

== ENCOUNTER 2024-03-01 16:47 | Emergency (ER) | payer BC, SELFPAY ==
[2024-03-01 18:20] VITALS: BP 150/76; PULSE 81; RESP 18; TEMP 36.9; O2SAT 96; BMI 45.1
[2024-03-01 18:44] LABS: UTC Influenza A Antigen Negative (Negative); UTC Strep Screen (Rapid) Negative (Negative)
--- NOTE | 2024-03-01 18:44 | ED_ITS ---
Discharge Plan Disposition Patient Disposition: Home, Self-Care Condition: Good Prescriptions Prescriptions: New albuterol sulfate [ProAir HFA] 90 mcg/actuation HFA aerosol inhaler 1 inh inhalation QID PRN (Reason: shortness of breath or wheezing) 3 Days Qty: 6.7 0RF No Action furosemide [Lasix] 20 mg tablet 20 mg PO DAILY 4 Days Qty: 4 0RF cholecalciferol (vitamin D3) 50 mcg (2,000 unit) capsule 50 mcg PO DAILY Qty: 30 2RF lisinopril 5 mg tablet 5 mg PO DAILY Patient Comments: TAKE 1 TABLET BY MOUTH ONCE DAILY Referrals Follow up/Referrals: Jeremías Santacruz MD [Primary Care Provider] - See instructions Activity Restrictions/Add. Instructions Additional Instructions/Restrictions: Start antibiotic today. Be sure to complete entire prescription even if feeling better Tylenol and ibuprofen as needed for pain or fever Humidifier/vaporizer/hot steamy shower Follow-up with primary care tomorrow. Follow-up immediately in the ER of the [facility] for new or worsening symptoms or no noticeable improvement over the next 48-72 hours. Stop smoking inhaler as needed Clinical Impressions Clinical Impression: Bronchitis Stand Alone Forms Stand Alone Forms: Work/School Release Instructions Patient Instructions: Acute Bronchitis Discharge ED Provider: Daysi ([facility])Rema [facility] [place] General Stated complaint: cough,fever Mode of Arrival: Ambulatory Source of Information: Patient Limitations: No Limitations Time Seen by Provider: 03/01/24 18:44 Description of Symptoms (Recalled from Triage Doc. by RN): Pt's symptoms are runny nose, cough, fever, and sore throat. HEENT Symptoms (Recalled from RN notes): Yes Resp Symptoms (Recalled from RN notes): No Skin Symptoms (Recalled from RN notes): No MS Symptoms (Recalled from RN notes): No Functional Status (Recalled from RN notes): n/a History of Present Illness Provider Complaint: 68 yr old male presents for c/o runny nose, cough, fever, and sore throat. Related Data Home Medications Medication Instructions Recorded Confirmed lisinopril 5 mg tablet 5 mg PO DAILY htn 09/09/23 03/01/24 Previous Rx's Medication Instructions Recorded furosemide 20 mg tablet (Lasix) 20 mg PO DAILY 4 days #4 tabs 03/27/20 cholecalciferol (vitamin D3) 50 50 mcg PO DAILY #30 caps 04/04/20 mcg (2,000 unit) capsule albuterol sulfate 90 mcg/actuation 1 inh inhalation QID PRN shortness 03/01/24 aerosol inhaler (ProAir HFA) of breath or wheezing 3 days #6.7 grams Allergies Allergy/AdvReac Type Severity Reaction Status Date / Time No Known Allergies Allergy Verified 03/01/24 18:38 Worker's Comp Is this a Worker's Comp case?: No [facility] Disclaimer: The information contained in this section may have been updated after the patient was seen, as this information can be updated by other users. Social History , [employer]) Smoking Status: Never smoker alcohol intake: never current occupational status: other Travel in the last 8 weeks: None household members: spouse ROS Obtained: Yes All systems reviewed & no additional complaints except as documented Constitutional Constitutional: Reports system reviewed and no additional complaints, except as documented Eyes Eyes: Reports system reviewed and no additional complaints, except as documented ENT Ears, Nose, Mouth, and Throat: Reports system reviewed and no additional complaints, except as documented, Reports as per HPI, Reports nasal congestion, Reports nasal discharge, Reports sinus pain, Reports sinus pressure and Reports sore throat Cardiovascular Cardiovascular: Reports system reviewed and no additional complaints, except as documented Respiratory Respiratory: Reports system reviewed and no additional complaints, except as documented, Reports as per HPI, Reports cough and Reports wheezing Gastrointestinal Gastrointestingal: Reports system reviewed and no additional complaints, except as documented Musculoskeletal Musculoskeletal: Reports system reviewed and no additional complaints, except as documented Integumentary/Breasts Skin/Breast: Reports system reviewed and no additional complaints, except as documented Neurologic Neurologic: Reports system reviewed and no additional complaints, except as documented Allergic/Immunologic Allergic/Immunologic: Reports system reviewed and no additional complaints, except as documented, Reports as per HPI, Reports seasonal rhinorrhea and Reports wheezing Physical Exam General General appearance: alert and in no apparent distress Head Head exam: atraumatic Eye Eye exam: Present normal appearance and PERRL ENT ENT exam: Present normal exam, mucous membranes moist and TM's normal bilaterally Respiratory Respiratory exam: Present wheezes Cardiovascular Cardiovascular exam: Present regular rate and normal rhythm Neurological Exam Neurological exam: Present alert and oriented X3 Skin Skin exam: Present warm and intact Medical Decision Making Medical Records Medical records reviewed: Yes I reviewed the patient's medical records. Lopez Inquiry Pt receiving controlled substance: No Lopez was queried for this patient: No Vital Signs: 03/01/24 18:20 Temperature 98.5 F Temperature Source Oral Pulse Rate [Right Radial] 81 Respiratory Rate 18 Blood Pressure [Right Arm] 150/76 H Blood Pressure Mean [Right Arm] 100 Blood Pressure Source [Right Arm] Automatic Cuff Blood Pressure Position [Right Arm] Sitting 02 Sat by Pulse Oximetry 96 Oxygen Delivery Method Room Air Lab Data Lab results reviewed: Yes I reviewed the patient's lab results.
[2024-03-01 18:45] LABS: UTC Influenza B Antigen Negative (Negative)
[2024-03-01] MEDS: DEXAMETHASONE 4MG/ML 1ML VIAL 4 MG IM (18:59)
[2024-03-01 19:19] VITALS: BP 150/76; PULSE 81; RESP 18; TEMP 36.9; O2SAT 96
== END 2024-03-01 19:19 | disposition home or self-care (01) ==
PROVIDERS: Emergency Provider Nurse Practitioner Family; PCP Psychiatry & Neurology Sleep Medicine
DX: J20.9 Acute bronchitis, unspecified (principal); R50.9 Fever, unspecified; R05.9 Cough, unspecified; R09.81 Nasal congestion; R07.0 Pain in throat
CPT/HCPCS: 87804; 87880; 96372; 99212; 99214; G0463

== ENCOUNTER 2024-03-10 09:54 | Emergency (ER) | payer BC, SELFPAY ==
[2024-03-10 10:05] VITALS: BP 144/86; PULSE 90; RESP 18; TEMP 36.7; O2SAT 97; BMI 44.4
[2024-03-10 10:10] VITALS: BMI 44.4
[2024-03-10] MEDS: IPRATROPIUM/ALBUTEROL 3 ML NEB IH (10:14)
--- NOTE | 2024-03-10 10:16 | EXP.UTC ---
Discharge Plan Disposition Patient Disposition: Home, Self-Care Condition: Good Prescriptions Prescriptions: New prednisone 10 mg tablet 10 mg PO DIRECTED 9 Days Qty: 21 0RF Rx Instructions: Take 4 tablets daily for 3 days, then take 2 tablets daily for 3 days, then take 1 tablet daily for 3 days, then stop. albuterol sulfate 2.5 mg /3 mL (0.083 %) solution for nebulization 2.5 mg inhalation Q6H PRN (Reason: shortness of breath or wheezing) Qty: 90 0RF No Action furosemide [Lasix] 20 mg tablet 20 mg PO DAILY 4 Days Qty: 4 0RF cholecalciferol (vitamin D3) 50 mcg (2,000 unit) capsule 50 mcg PO DAILY Qty: 30 2RF lisinopril 5 mg tablet 5 mg PO DAILY Patient Comments: TAKE 1 TABLET BY MOUTH ONCE DAILY albuterol sulfate [ProAir HFA] 90 mcg/actuation HFA aerosol inhaler 1 inh inhalation QID PRN (Reason: shortness of breath or wheezing) 3 Days Qty: 6.7 0RF Referrals Follow up/Referrals: Johnson Santacruz MD [Primary Care Provider] - See instructions Activity Restrictions/Add. Instructions Additional Instructions/Restrictions: Drink plenty of fluids. Take tylenol or ibuprofen for pain or fever. Take the medications as directed. Follow up with your regular doctor. GO TO THE ER FOR ANY WORSENING SYMPTOMS Don't start the oral steroids until tomorrow since you had the steroid shot here today. Clinical Impressions Clinical Impression: Bronchitis Stand Alone Forms Stand Alone Forms: Work/School Release Instructions Patient Instructions: DI for Acute Bronchitis, Dexamethasone Injection Discharge ED Provider: Cory Middleton [facility] [place] HPI General Stated complaint: SOA Mode of Arrival: Ambulatory Source of Information: Patient Limitations: No Limitations Time Seen by Provider: 03/10/24 10:16 Description of Symptoms (Recalled from Triage Doc. by RN): Pt's symptoms coughing. HEENT Symptoms (Recalled from RN notes): Yes Resp Symptoms (Recalled from RN notes): No Skin Symptoms (Recalled from RN notes): No MS Symptoms (Recalled from RN notes): No Functional Status (Recalled from RN notes): n/a History of Present Illness Provider Complaint: He states that for the past 2 weeks he has had chest tightness, productive cough, sinus congestion and ear pain. He was treated with a steroid shot and a z-pack last week by his pcp. He states that after the steroid shot he did feel better for a couple of days, but now his symptoms are back. He has 1 more day to complete the z-pack. He denies fever and chills, but states that he did feel achy when his symptoms first began. Related Data Home Medications Medication Instructions Recorded Confirmed lisinopril 5 mg tablet 5 mg PO DAILY htn 09/09/23 03/01/24 Previous Rx's Medication Instructions Recorded furosemide 20 mg tablet (Lasix) 20 mg PO DAILY 4 days #4 tabs 03/27/20 cholecalciferol (vitamin D3) 50 50 mcg PO DAILY #30 caps 04/04/20 mcg (2,000 unit) capsule albuterol sulfate 90 mcg/actuation 1 inh inhalation QID PRN shortness 03/01/24 aerosol inhaler (ProAir HFA) of breath or wheezing 3 days #6.7 grams albuterol sulfate 2.5 mg/3 mL 2.5 mg (3 mL) inhalation Q6H PRN 03/10/24 (0.083 %) solution for nebulization shortness of breath or wheezing #90 mL prednisone 10 mg tablet 10 mg PO DIRECTED 9 days #21 03/10/24 tabs Allergies Allergy/AdvReac Type Severity Reaction Status Date / Time No Known Allergies Allergy Verified 03/10/24 10:11 Worker's Comp Is this a Worker's Comp case?: No [facility] Disclaimer: The information contained in this section may have been updated after the patient was seen, as this information can be updated by other users. Social History Smoking Status: Never smoker alcohol intake: never current occupational status: other Travel in the last 8 weeks: None household members: spouse ROS Obtained: Yes All systems reviewed & no additional complaints except as documented Constitutional Constitutional: Reports poor appetite Eyes Eyes: Reports system reviewed and no additional complaints, except as documented ENT Ears, Nose, Mouth, and Throat: Reports as per HPI Cardiovascular Cardiovascular: Reports system reviewed and no additional complaints, except as documented and Denies chest pain Respiratory Respiratory: Denies shortness of breath, Reports chest congestion, Reports cough, Denies stridor and Reports wheezing Gastrointestinal Gastrointestingal: Reports system reviewed and no additional complaints, except as documented; Denies abdominal pain, diarrhea or vomiting Musculoskeletal Musculoskeletal: Reports system reviewed and no additional complaints, except as documented and Denies arthralgias Integumentary/Breasts Skin/Breast: Reports system reviewed and no additional complaints, except as documented and Denies rash Neurologic Neurologic: Denies paresthesias Allergic/Immunologic Allergic/Immunologic: Reports wheezing Physical Exam General General appearance: alert and in no apparent distress Eye Eye exam: Present normal appearance, PERRL and EOMI ENT ENT exam: Present mucous membranes moist and normal external ear exam Expanded ENT Exam External ear exam: Present normal external inspection TM/Canal exam: Bilateral TM: erythema and bulging Nose exam: Absent sinus tenderness Nasal speculum exam: Bilateral: normal Mouth exam: Present normal external inspection; Absent drooling Teeth exam: Present normal inspection Throat exam: Present tonsillar erythema and tonsillomegaly Neck Neck exam: Present normal inspection, full ROM and trachea midline; Absent tenderness, lymphadenopathy or thyromegaly Chest Chest inspection: Present normal inspection and symmetric chest wall rise; Absent tenderness or rash Respiratory Respiratory exam: Present normal lung sounds bilaterally; Absent respiratory distress, wheezes, stridor or accessory muscle use Cardiovascular Cardiovascular exam: Present regular rate, normal rhythm and normal heart sounds Abdominal Exam Abdominal exam: Present soft; Absent distention, tenderness, guarding, rebound or rigidity Extremities Exam Extremities exam: Present normal inspection, full ROM and normal capillary refill; Absent tenderness or calf tenderness Back Exam Back exam: Present normal inspection and full ROM; Absent tenderness Neurological Exam Neurological exam: Present alert and oriented X3 Psychiatric Psychiatric exam: Present normal affect and normal mood Skin Skin exam: Present warm, dry, intact and normal color Lymphatic Lymphatic Findings: no adenopathy Medical Decision Making Medical Records Medical records reviewed: No I reviewed the patient's medical records. Lopez Inquiry Pt receiving controlled substance: No Vital Signs: 03/10/24 10:05 Temperature 98.0 F Temperature Source Oral Pulse Rate [Right Radial] 90 Respiratory Rate 18 Blood Pressure [Right Arm] 144/86 H Blood Pressure Mean [Right Arm] 105 Blood Pressure Source [Right Arm] Automatic Cuff Blood Pressure Position [Right Arm] Sitting 02 Sat by Pulse Oximetry 97 Oxygen Delivery Method Room Air Orders (Tests/Meds): ED MEDICATIONS Generic Name Dose Route Start Last Admin Trade Name Freq PRN Reason Stop Dose Admin Albuterol/Ipratropium 3 ml 03/10/24 10:11 03/10/24 10:14 Ipratropium/Albuterol 3 Ml Neb IH 03/10/24 10:12 3 ml ONCE ONE Administration ORDERS Category Date Time Status Chest XR 2 view (NOT portable) [XR chest 2V] Stat Exams 03/10/24 10:15 Ordered Radiology Data #1: Image(s): Chest Image Reviewed: Yes I reviewed the patient's radiology image and Yes I have reviewed radiologist's interpretation Preliminary Findings: Normal/NAD and No Infiltrates Seen Accession No. : [id number] Patient Name / ID : Jonathan Chisholm / [id number] Exam Date : 03/10/2024 10:14:43 ( Final ) Study Comment : Sex / Age : M / [id number] Creator : SUNI PARIKH MD Dictator : Iron Pourer : Caustic Room Attendant : SUNI PARIKH MD Approver2 : Report Date : 03/10/2024 11:40:11 My Comment : FINAL REPORT CLINICAL HISTORY: Acute cough congestion COMPARISON: 11/27/2017 FINDINGS: Two views of the chest were obtained. The heart size and pulmonary vascularity are within normal limits. The mediastinum is normal. No acute pulmonary abnormality is identified. There is no pneumothorax. The bony thorax is intact. IMPRESSION: No active cardiopulmonary disease. Reviewed, Interpreted and Dictated by Suni Parikh III, MD Transcribed by Savanah Cadena Authenticated and [facility]
[2024-03-10] MEDS: DEXAMETHASONE 4MG/ML 1ML VIAL 8 MG IM (11:05)
[2024-03-10 11:21] VITALS: BP 144/86; PULSE 90; RESP 18; TEMP 36.7; O2SAT 97
== END 2024-03-10 11:24 | disposition home or self-care (01) ==
PROVIDERS: Emergency Provider Nurse Practitioner Family; PCP Family Medicine
DX: J20.9 Acute bronchitis, unspecified (principal); R07.89 Other chest pain; R05.9 Cough, unspecified; R09.81 Nasal congestion
CPT/HCPCS: 71046; 96372; 99212; 99214; G0463

== ENCOUNTER 2024-05-10 15:13 | Outpatient (POV) | payer BC, SELFPAY | END 2024-05-10 23:59 | disposition home or self-care (01) | LOC: SC 15:13 | PROVIDERS: Visit Provider Specialist/Technologist | DX: Z00.00 Encounter for general adult medical examination without abnormal findings (principal) ==

== ENCOUNTER 2024-10-09 09:22 | Outpatient (CLI) | payer BC, SELFPAY ==
--- OUTSIDE RECORDS SUMMARY | 2024-10-09 09:27 | XMS_ITS ---
Author Organization [facility] Address [address] [place] [id number] Care Team Providers Care Box Stamper Name Role Phone Alexey Santacruz Jeremías Unavailable [phone] ALLERGIES No Known Allergies RESULTS Component Value Reference Range Notes Glycohemoglobin A1c (in hous e) Reviewed date:07/14/2024 09:44:13 AM Interpretation: Performing Lab: Notes/Report: glycohemoglobin 5.8% 5 - 6.5 % P-Comprehensive Metabolic Pa niranjan (CMP) Reviewed date:07/14/2024 12:47:19 PM Interpretation:satisfactory Performing Lab: Notes/Report: Test performed by [facility] [address] [place] [address] , [address], [place] [address] Darin Carlson MD, Leather Scrubber CLIA: [id number] Sodium 139 135-145 mmol/L Potassium 4.2 3.5-5.3 mmol/L Chloride 103 97-108 mmol/L CO2 25 22-32 mmol/L Glucose 102 65-99 mg/dL BUN 10 8-23 mg/dL Creatinine 0.86 0.70-1.30 mg/dL Calcium 9.3 8.6-10.4 mg/dL eGFR by Creatinine 95 >59 mL/min/1.73m2 Protein 6.9 6.0-8.3 g/dL Albumin 4.4 3.5-5.3 g/dL Alkaline Phosphatase 121 40-129 IU/L ALT (SGPT) 13 <5-55 IU/L AST (SGOT) 15 <5-46 IU/L Bilirubin, Total 0.7 <0.2-1.2 mg/dL A/G Ratio 1.8 1.1-2.5 REASON FOR VISIT 5 months, Needs labs, colon cancer screening, & shingles vaccine MEDICATIONS Medication SIG (Take, Route, Frequency, Duration) Notes Start Date End Date Status Promethazine-DM 6.25-15 MG/5ML 5 ml as needed Orally every 6 hrs 03/06/2024 Active Benzonatate 200 MG 1 capsule Orally Thr ee times a day as needed 03/06/2024 Active Sildenafil Citrate 20 MG 1 tablet Orally as directed for 30 day(s) 06/17/2023 Active Furosemide 20 MG Take 1 tablet by [facility] once daily for 30 Active Vitamin B12 1000 MCG 1 tablet Orally Onc e a day for 30 day(s) 06/02/2023 Active Albuterol Sulfate 108 (90 Base) MCG/ACT 1 puff as needed Inhalation every 4 hrs Active Lisinopril 10 MG 1 tablet Orally Once a day for 90 days 07/13/2024 Active IMMUNIZATIONS Vaccine Route Administration Date Status Comme nts Fluzone High Dose (65yr and older) IM Intramuscular 07/13/2024 Administered VITAL SIGNS Weight 278.6 lbs 07/13/2024 Blood pressure systolic 140 mm Hg 07/13/20 24 Blood pressure diastolic 70 mm Hg 024 Heart Rate 79 /min 07/13/2024 Height 66 in 07/13/2024 BMI 44.96 kg/m2 07/13/2024 Encounters Encounter Location Date Provider Diagnosis [facility] [facility] [address] [place] [id number] 07/13/2024 Alexey Santacruz Essential hypertensi on I10 ; Localized edema R60.0 ; Male erectile disorder N52.9 ; Hyperglycemia R73.9 and Encounter for immunization Z23 ASSESSMENTS Encounter Date Diagnosis Assessment Notes Treatment Notes Treatment Clinical Notes 07/13/2024 Essential hypertension (ICD-10 - I10) 07/13/2024 Localized edema (ICD-10 - R60.0) 07/13/2024 Male erectile disorder (ICD-10 - N52.9) 07/13/2024 Hyperglycemia (ICD-1 0 - R73.9) 07/13/2024 Encounter for immunization (ICD-10 - Z23) PLAN OF TREATMENT Medication Medication Name Sig Start Date Stop Date Notes Sildenafil Citrate 20 MG 1 tablet Orally as directed for 30 day(s) 06/17/2023 Lisinopril 5 MG 1 tablet Orally Once a day Lisinopril 10 MG 1 tablet Orally Once a day for 90 days 07/13/2024 Next Appt Details Follow Up: 2 Months, Reason: Provider Name:Alexey Veronica Gibran , 10/26/2024 03:45:00 PM, [address], [address], [place], [place], [phone], Progress Notes * Examination Category Sub-Category Detail Notes General Examination HEENT: unremarkable Heart: RSR, no ectopics Lungs: clear to auscultatio n Abdomen: obese, soft and nont jluis, no organomegaly or masses Extremities: 2+ leg edema General Appearance: NAD, note weight los s Skin: normal, no rash Neurologic Exam: Intact, gait normal Neck: supple, no lymphaden opathy Oral cavity: no lesions, mucosa m oist and WNL, no erythema Peripheral pulses: normal Back: mild dorsal kyphosis Chest: normal shape and exp ansion History and Physical Notes * HPI (History of Present Illness) Category Sub-Category Detail Notes Cardiology Short of Breath Chest Pain Palpitations Dizziness
--- OUTSIDE RECORDS SUMMARY | 2024-10-09 09:27 | XMS_ITS | Patient Health Record ---
[facility] Address [address] [facility] [address] [place] [phone] Care Team Providers Care Toll Collector Supervisor Name Role Phone Alexey Santacruz Unavailable [phone] Elias Hester Unavailable [phone] ALLERGIES No Known Allergies RESULTS Component Value Reference Range Notes CBC Fingerstick (in house) Reviewed date:03/08/2024 04:23:07 PM Interpretation: Performing Lab: Notes/Report: wbc 16.1 3.5 - 10 lym 14.3 15 - 50 mid 3.7 2 - 15 gran 82.0 35 - 80 rbc 4.63 3.5 - 5.5 hgb 13.8 11.5 - 16.5 hct 42.0 35 - 55 mcv 90.8 75 - 100 mch 29.9 25 - 35 mchc 32.9 31 - 38 plat 274 100 - 400 P-Comprehensive Metabolic Pa niranjan (CMP) Reviewed date:07/14/2024 12:47:19 PM Interpretation:satisfactory Performing Lab: Notes/Report: Test performed by [email or web address] [address] [place] [address] , [address], [place] [address] Darin Carlson MD, Agricultural Engineering Technologist CLIA: [id number] Sodium 139 135-145 mmol/L Potassium 4.2 3.5-5.3 [...] 0.7 <0.2-1.2 mg/dL A/G Ratio 1.8 1.1-2.5 Glycohemoglobin A1c (in hous e) Reviewed date:07/14/2024 09:44:13 AM Interpretation: Performing Lab: Notes/Report: glycohemoglobin 5.8% 5 - 6.5 % P-Comprehensive Metabolic Pa niranjan (CMP) Reviewed date:09/27/2024 10:02:15 AM Interpretation:satisfactory Performing Lab: Notes/Report: Test performed by [email or web address] [address] [place] [address] , [address], [place] [address] Darin Carlson MD, Agricultural Engineering Technologist CLIA: [id number] Sodium 140 135-145 mmol/L Potassium 4.2 3.5-5.3 mmol/L Chloride 105 97-108 mmol/L CO2 25 22-32 mmol/L Glucose 104 65-99 mg/dL BUN 13 8-23 mg/dL Creatinine 1.11 0.70-1.30 mg/dL Calcium 9.0 8.6-10.4 mg/dL eGFR by Creatinine 73 >59 mL/min/1.73m2 Protein 6.7 6.0-8.3 g/dL Albumin 4.1 3.5-5.3 g/dL Alkaline Phosphatase 124 40-129 IU/L ALT (SGPT) 13 <5-55 IU/L AST (SGOT) 12 <5-46 IU/L Bilirubin, Total 0.5 <0.2-1.2 mg/dL A/G Ratio 1.6 1.1-2.5 P-Basic Metabolic Panel (BMP ) Reviewed date:02/11/2024 08:29:48 AM Interpretation:CO2 21, gluc 127 Performing Lab: Notes/Report: Test performed by [email or web address] [address] [place] [address] , [address], [place] [address] Darin Carlson MD, Agricultural Engineering Technologist CLIA: [id number] Sodium 139 135-145 mEq/L Potassium 3.9 3.5-5.3 mEq/L Chloride 104 97-108 mEq/L CO2 21 22-32 mEq/L Glucose 127 65-99 mg/dL BUN 13 8-23 mg/dL Creatinine 0.84 0.70-1.30 mg/dL Calcium 8.9 8.6-10.4 mg/dL eGFR by Creatinine 96 >59 mL/min/1.73m2 P-PSA Reviewed date:02/11/2024 08:29:48 AM Interpretation:Normal Performing Lab: Notes/Report: Test performed by [email or web address] [address] [place] [address] , [address], [place] [address] Darin Carlson MD, Agricultural Engineering Technologist CLIA: [id number] PSA 0.62 <4.00 ng/mL Please note this is an ultrasensitive PSA assay with a lower limit of detection of 0.014 ng/mL. This test is performed by the [employer] ECLIA methodology. Values obtained with different assay methods or kits cannot be directly compared. Cardiac Stress Test Exercise [facility] Reviewed date:12/28/2023 08:57:36 AM Interpretation:View Report Performing Lab: Notes/Report: View Report REASON FOR REFERRAL No Information MEDICATIONS Medication SIG (Take, Route, Frequency, Duration) Notes Start Date End Date Status Meloxicam 15 MG 1 tablet Orally Once a day for 30 day(s) 09/21/2024 Active Furosemide 20 MG Take 1 tablet by [facility] once daily for 90 Active Sildenafil Citrate 20 MG 1 tablet Orally Once a day for 30 days Active Lisinopril 10 MG 1 tablet Orally Once a day for 90 days 07/13/2024 Active Vitamin B12 1000 MCG 1 tablet Orally Onc e a day for 30 day(s) 06/02/2023 Active Albuterol Sulfate 108 (90 Base) MCG/ACT 1 puff as needed Inhalation every 4 hrs Active Benzonatate 200 MG 1 capsule Orally Thr ee times a day as needed 03/06/2024 Active Promethazine-DM 6.25-15 MG/5ML 5 ml as needed Orally every 6 hrs 03/06/2024 Active IMMUNIZATIONS Vaccine Route Administration Date Status Comme nts Tetanus Tdap-Adacel (over 7yrs) IM Intramuscular 02/10/2024 Administered Fluzone High Dose (65yr and older) IM Intramuscular 08/05/2023 Administered Fluzone High Dose (65yr and older) IM Intramuscular 07/13/2024 Administered COVID 19 Moderna Unknown 11/08/2020 Administered COVID 19 Moderna Unknown 12/06/2020 Administered COVID 19 Moderna Unknown 01/15/2022 Administered SOCIAL HISTORY Sex Assigned At : Social History Observation Description Sex Assigned At Unknown PROBLEMS Problem Type ICD Code Onset Dates Problem Status W/U Status Risk SNOMED Code Notes Problem Vitamin B12 deficiency (E53.8) Active confirmed 069524140 Problem Essential hypertension (I10) Active confirmed 01371860 Problem Localized edema (R60.0) Active confirmed 432117541 Problem Male erectile disorder (N52.9) Active confirmed 569042333 Problem Pulmonary hypertension (I27.20) Active confirmed 36132233 Problem Knee arthropathy (M17.10) Active confirmed 510484002 VITAL SIGNS Heart Rate 77 /min 09/21/2024 Blood pressure diastolic 64 mm Hg 09/21/2024 Height 66 in 09/21/2024 Blood pressure systolic 132 mm Hg 09/21/2024 Weight 277.2 lbs 09/21/2024 BMI 44.74 kg/m2 09/21/2024 Encounters Encounter Location Date Provider Diagnosis [facility] [address] [place], [place] [phone] 12/09/2023 Alexey Santacruz Essential hypertensi on I10 ; Pulmonary hypertension I27.20 and Localized edema R60.0 [facility] [address] [place], [place] [id number] 12/28/2023 Alexey Santacruz [facility] [address] [place], [place] [id number] 02/10/2024 Alexey Santacruz Essential hypertensi on I10 ; Localized edema R60.0 ; Pulmonary hypertension I27.20 ; Encounter for immunization Z23 and Male erectile disorder N52.9 [facility] [address] [facility] [address] [place], [place] [phone] 02/11/2024 Alexey Santacruz [facility] [address] [facility] [address] [place], [place] [phone] 03/06/2024 Elias [place] Acute cough R05.1 [facility] [address] [facility] [address] [place], [place] [id number] 06/21/2024 Alexey Santacruz [facility] [address] [place] [id number] 07/13/2024 Alexey Santacruz Essential hypertensi on I10 ; Localized edema R60.0 ; Male erectile disorder N52.9 ; Hyperglycemia R73.9 and Encounter for immunization Z23 [facility] [address] [place] [id number] 07/14/2024 [facility] [address] [place], [place] [phone] 09/21/2024 Alexey Santacruz Essential hypertensi on I10 ; Knee arthropathy M17.10 ; Localized edema R60.0 and Cough, unspecified type R05.9 ASSESSMENTS Encounter Date Diagnosis Assessment Notes Treatment Notes Treatment Clinical Notes 12/09/2023 Essential hypertension (ICD-10 - I10) 12/09/2023 Pulmonary hypertension (ICD-10 - I27.20) 03/06/2024 Acute cough (ICD-10 - R05.1) 07/13/2024 Essential hypertension (ICD-10 - I10) 07/13/2024 Localized edema (ICD-10 - R60.0) 09/21/2024 Essential hypertension (ICD-10 - I10) 09/21/2024 Knee arthropathy (ICD-10 - M17.10) 02/10/2024 Essential hypertension (ICD-10 - I10) 02/10/2024 Localized edema (ICD-10 - R60.0) 02/10/2024 Pulmonary hypertension (ICD-10 - I27.20) 07/13/2024 Male erectile disorder (ICD-10 - N52.9) 09/21/2024 Localized edema (ICD-10 - R60.0) 12/09/2023 Localized edema (ICD-10 - R60.0) 09/21/2024 Cough, unspecified type (ICD-10 - R05.9) 07/13/2024 Hyperglycemia (ICD-1 0 - R73.9) 02/10/2024 Encounter for immunization (ICD-10 - Z23) 02/10/2024 Male erectile disorder (ICD-10 - N52.9) 07/13/2024 Encounter for immunization (ICD-10 - Z23) PLAN OF TREATMENT Pending Test Test Name Order Date X ray : Knee, left 09/21/2024 Next Appt Details Provider Name:Alexey Veronica Gibran er, 10/26/2024 03:45:00 PM, [address], [address], [place], [phone], Insurance Providers Payer Name Payer Address Payer Phone Subscriber Number Group Number Insured Name Patient Relationship to Insured Coverage Start Date Coverage End Date [employer] [address] [place] [address] [id number] [place] Self - patient is the insured MEDICATIONS ADMINISTERED Medication Instructions Date of Administration Dosage Notes B-12 06/17/2023 1 mL MEDICAL (GENERAL) HISTORY Medical History History ICD Code Hypertension 03/10/24 normal CXR Surgical History Surgery Date(Month/Year) Cholecystectomy 05/2001
--- OUTSIDE RECORDS SUMMARY | 2024-10-09 09:27 | XMS_ITS ---
Author Organization [facility] Address [address] [facility] [address] [place] [phone] Care Team Providers Care Finisher Hand Name Role Phone Noam Alexey Jeremías Unavailable [phone] ALLERGIES No Known Allergies RESULTS Component Value Reference Range Notes P-Comprehensive Metabolic Pa niranjan (CMP) Reviewed date:09/27/2024 10:02:15 AM Interpretation:satisfactory Performing Lab: Notes/Report: CLIA: [id number] Darin Carlson MD, Integrity Specialist [address] [place] [address] , [address], [place] [address] Test performed by [facility] Sodium 140 135-145 mmol/L Potassium 4.2 3.5-5.3 [...] 0.5 <0.2-1.2 mg/dL A/G Ratio 1.6 1.1-2.5 REASON FOR VISIT 2 months, Needs labs, colon cancer screening, & shingles vaccine MEDICATIONS Medication SIG (Take, Route, Frequency, Duration) Notes Start Date End Date Status Furosemide 20 MG Take 1 tablet by once daily for 30 Active Sildenafil Citrate 20 MG 1 tablet Orally Once a day for 30 days Active Lisinopril 10 MG 1 tablet Orally Once a day for 90 days 07/13/2024 Active Albuterol Sulfate 108 (90 Base) MCG/ACT 1 puff as needed Inhalation every 4 hrs Active Promethazine-DM 6.25-15 MG/5ML 5 ml as needed Orally every 6 hrs 03/06/2024 Active Meloxicam 15 MG 1 tablet Orally Once a day for 30 day(s) 09/21/2024 Active Vitamin B12 1000 MCG 1 tablet Orally Onc e a day for 30 day(s) 06/02/2023 Active Benzonatate 200 MG 1 capsule Orally Thr ee times a day as needed 03/06/2024 Active PROBLEMS Problem Type ICD Code Onset Dates Problem Status W/U Status Risk SNOMED Code Notes Problem Knee arthropathy (M17.10) Active confirmed 052768141 VITAL SIGNS Weight 277.2 lbs 09/21/2024 Blood pressure systolic 132 mm Hg 09/21/20 24 Blood pressure diastolic 64 mm Hg 024 Heart Rate 77 /min 09/21/2024 Height 66 in 09/21/2024 BMI 44.74 kg/m2 09/21/2024 Encounters Encounter Location Date Provider Diagnosis [facility] [address] [facility] [address] [place], [place] [phone] 09/21/2024 Alexey Santacruz Essential hypertensi on I10 ; Knee arthropathy M17.10 ; Localized edema R60.0 and Cough, unspecified type R05.9 ASSESSMENTS Encounter Date Diagnosis Assessment Notes Treatment Notes Treatment Clinical Notes 09/21/2024 Essential hypertension (ICD-10 - I10) 09/21/2024 Knee arthropathy (ICD-10 - M17.10) 09/21/2024 Localized edema (ICD-10 - R60.0) 09/21/2024 Cough, unspecified type (ICD-10 - R05.9) PLAN OF TREATMENT Medication Medication Name Sig Start Date Stop Date Notes Promethazine-DM 6.25-15 MG/5ML 5 ml as n eeded Orally every 6 hrs 03/06/2024 Meloxicam 15 MG 1 tablet Orally Once a day for 30 day(s) 09/21/2024 Pending Test Test Name Order Date X ray : Knee, left 09/21/2024 Next Appt Details Follow Up: 4 Weeks, Reason: Provider Name:Alexey Peñanisreen , 10/26/2024 03:45:00 PM, [address], [address], [place], [place], [phone], Progress Notes * Examination Category Sub-Category Detail Notes General Examination HEENT: unremarkable Heart: RSR, no ectopics Lungs: clear to auscultatio n Abdomen: obese, soft and nont jluis, no organomegaly or masses Extremities: 1+ leg edema, suppor t stockings, osteoarthritic changes of the knees, left shows evidence of medial compartment degeneration. Wearing brace General Appearance: NAD, note weight los s [...]
--- OUTSIDE RECORDS SUMMARY | 2024-10-09 09:27 | XMS_ITS ---
Author Organization [facility] Address [address] [facility] 36 [facility] [address] [place] [phone] Care Team Providers Care Computer Game Designer Name Role Phone Alexey Santacruz Unavailable [phone] REASON FOR VISIT PA not needed Encounters Encounter Location Date Provider Diagnosis [place] [address] [facility] [address] [facility] [address] [place] [id number] 07/14/2024 Alexey Santacruz PLAN OF TREATMENT Next Appt Details Provider Name:Alexey Leary er, 10/26/2024 03:45:00 PM, [facility] [facility], [address], [place], [phone],
--- NOTE | 2024-10-09 09:31 | XR_ITS ---
FINAL REPORT CLINICAL HISTORY: KNEE ARTHROPASTHY limping, pain COMPARISON: None FINDINGS: Three views of the left knee reveal no evidence of fracture or dislocation. The bony alignment is normal. Mild and moderate degenerative changes are noted. There is medial compartment narrowing. There is no evidence of joint effusion. No localized soft tissue abnormality is seen. IMPRESSION: Degenerative changes and medial compartment narrowing without acute abnormality. Reviewed, Interpreted and Dictated by Wilder Parikh III, MD Transcribed by Cata Silva Authenticated and [facility]
== END 2024-10-09 23:59 | disposition home or self-care (01) ==
LOC: RAD 09:25
PROVIDERS: PCP Family Medicine; Visit Provider Family Medicine
DX: M17.12 Unilateral primary osteoarthritis, left knee (principal)
CPT/HCPCS: 73562